=== PATIENT | female | born 1950 | race Caucasian/White ===

== ENCOUNTER → 2020-08-30 | Outpatient (CLI) | payer MEDICARE, OTHER | END | disposition home or self-care (01) | LOC: PLD 12:08 → LAB SHORT 12:08 | DX: L82.1 Other seborrheic keratosis (principal) | CPT/HCPCS: 88305 ==

== ENCOUNTER → 2024-06-09 | Outpatient (CLI) | payer MEDICARE, OTHER ==
[2024-06-09 17:39] LABS: BASOPHILS ABSOLUTE AUTO 0.11 K/mm3 (0.00-0.23); BASOPHILS PERCENT AUTO 1 % (0-2); EOSINOPHILS PERCENT AUTO 2 % (0-6); Hematocrit 43.5 % (33.0-51.0); Hemoglobin 14.6 g/dL (11.5-16.0); IMMATURE GRAN ABSOLUTE AUTO 0.19 K/mm3 (0.00-0.10); IMMATURE GRAN PERCENT AUTO 2 % (0-1); LYMPHOCYTES ABSOLUTE AUTO 1.59 K/mm3 (0.84-5.20); LYMPHOCYTES PERCENT AUTO 19 % (21-46); MONOCYTES ABSOLUTE AUTO 0.74 K/mm3 (0.16-1.47); MONOCYTES PERCENT AUTO 9 % (4-13); Mean Corpuscular HGB 30.2 pg (26.0-34.0); Mean Corpuscular HGB Conc 33.6 g/dL (31.5-36.5); Mean Corpuscular Volume 90 fL (80-100); NEUTROPHILS ABSOLUTE AUTO 5.42 K/mm3 (1.96-9.15); NEUTROPHILS PERCENT AUTO 66 % (41-73); Platelet Count 273 K/mm3 (150-400); RDW Coefficient Variation 13.9 % (11.7-14.2); Red Blood Cell Count 4.83 M/mm3 (3.80-5.20); White Blood Cell Count 8.25 K/mm3 (4.00-11.30)
[2024-06-09 17:46] LABS: Bun/Creatinine Ratio 8.5 (12.0-20.0); Calcium, Blood 8.9 mg/dL (8.5-10.1); Creatinine, Blood 0.82 mg/dL (0.40-1.00); Potassium, Blood 4.3 mmol/L (3.5-5.5)
== END | disposition home or self-care (01) ==
LOC: LAB SHORT 17:35 → LAB 17:35
PROVIDERS: Physician Assistant Surgical
DX: R53.83 Other fatigue (principal)
CPT/HCPCS: 80048; 85025

== ENCOUNTER 2024-07-07 10:53 | Inpatient (IN) | payer MEDICARE, OTHER ==
[~2024-07-07] VITALS: Ht 170.2 cm; Wt 53.2 kg
[2024-07-07] MEDS ORDERED: MethylPREDNISolone Sod Succ 125 MG Vial IV ONE (11:40)
[2024-07-07 11:43] LABS: BASOPHILS ABSOLUTE AUTO 0.08 K/mm3 (0.00-0.23); BASOPHILS PERCENT AUTO 1 % (0-2); EOSINOPHILS ABSOLUTE AUTO 0.05 K/mm3 (0.00-0.68); EOSINOPHILS PERCENT AUTO 0 % (0-6); Hematocrit 42.9 % (33.0-51.0); Hemoglobin 14.4 g/dL (11.5-16.0); IMMATURE GRAN ABSOLUTE AUTO 0.26 K/mm3 (0.00-0.10); IMMATURE GRAN PERCENT AUTO 2 % (0-1); LYMPHOCYTES ABSOLUTE AUTO 0.81 K/mm3 (0.84-5.20); LYMPHOCYTES PERCENT AUTO 6 % (21-46); MONOCYTES ABSOLUTE AUTO 1.03 K/mm3 (0.16-1.47); MONOCYTES PERCENT AUTO 8 % (4-13); Mean Corpuscular HGB 29.9 pg (26.0-34.0); Mean Corpuscular HGB Conc 33.6 g/dL (31.5-36.5); Mean Corpuscular Volume 89 fL (80-100); Mean Platelet Volume 10.4 fL (9.1-12.4); NEUTROPHILS ABSOLUTE AUTO 11.36 K/mm3 (1.96-9.15); NEUTROPHILS PERCENT AUTO 84 % (41-73); Platelet Count 159 K/mm3 (150-400); RDW Coefficient Variation 13.9 % (11.7-14.2); RDW Standard Deviation 45.2 fL (35.1-46.3); Red Blood Cell Count 4.82 M/mm3 (3.80-5.20); White Blood Cell Count 13.59 K/mm3 (4.00-11.30)
[2024-07-07 11:47] LABS: Albumin, Blood 3.2 g/dL (3.4-5.0); Albumin/Globulin Ratio 0.7 (0.8-1.8); Bilirubin, Total 1.2 mg/dL (0.1-1.0); Bun/Creatinine Ratio 47.4 (12.0-20.0); Calcium, Blood 12.1 mg/dL (8.5-10.1); Creatinine, Blood 1.35 mg/dL (0.40-1.00); Globulin, Blood 4.3 g/dL (2.2-4.0); Potassium, Blood 3.8 mmol/L (3.5-5.5); Total Protein, Blood 7.5 g/dL (6.4-8.2)
[2024-07-07] MEDS ORDERED: NS 1,000 ML IV SCH (12:30)
[2024-07-07] MEDS ORDERED: Aspirin 325 MG Tab PO ONE (12:45)
[2024-07-07] MEDS ORDERED: Acetaminophen 325 MG TABLET PO PRN ×2 (14:20→16:05)
[2024-07-07] MEDS ORDERED: FLU VACC TS2024-25(6MOS UP)/PF 45 MCG/0.5 ML SYRINGE IM SCH (14:20)
[2024-07-07] MEDS ORDERED: Ketorolac Tromethamine 15mg Vial IV PRN (14:25)
[2024-07-07] MEDS ORDERED: METHADONE HCL1010 PO (14:53)
[2024-07-07] MEDS ORDERED: LISI20 PO (14:54)
[2024-07-07] MEDS ORDERED: Ipratropium/Albuterol SulF 2.5-0.5MG/3 ML Amp INH ONE (16:00)
[2024-07-07] MEDS ORDERED: OxyCODONE HCL 5 MG TAB PO PRN (16:05)
[2024-07-07] MEDS ORDERED: Polyethylene Glycol 3350 17 gm PO PRN (16:05)
[2024-07-07] MEDS ORDERED: HYDROmorphone HCl/Pf 1MG SYR IV PRN (16:10)
[2024-07-07] MEDS ORDERED: Enoxaparin 60 MG/0.6 ML SYR SC SCH (17:00)
[2024-07-07 17:23] LABS: Anti-Xa UFH, PHA Monitoring <0.10 IU/mL
[2024-07-07 17:27] LABS: International Normalized Ratio 1.17; Prothrombin Time Results 12.4 Sec (9.7-11.5)
[2024-07-07] MEDS ORDERED: Lactated Ringer's 1,000 ML IV SCH (17:40)
--- NOTE | 2024-07-07 18:35 | NUR ---
PT ARRIVAL/SHIFT SUMMARY... PT ARRIVED TO THE UNIT AND WAS ABLE TO SELF TRANSFER TO THE BED. PT'S VS STABLE SHE IS ON RA WITH O2 SATS>95%. L/S DIM T/O. SHE IS IN SR IN THE 70'S. BP STABLE. NO SWELLING OR EDEMA NOTED. PT IS TEARFUL ABOUT NEW CA DIAGNOSIS, FAMILY AT THE BEDSIDE. WILL CONTINUE TO MONITOR UNTIL REPORT IS GIVEN TO ONCOMING RN.
[2024-07-07 20:21] VITALS: BP 123/77
[2024-07-07] MEDS ORDERED: Sennosides 8.6 MG Tab PO SCH (21:00)
[2024-07-08 00:15] VITALS: BP 128/63
[2024-07-08 04:38] LABS: BASOPHILS ABSOLUTE AUTO 0.02 K/mm3 (0.00-0.23); BASOPHILS PERCENT AUTO 0 % (0-2); EOSINOPHILS PERCENT AUTO 0 % (0-6); Hematocrit 33.9 % (33.0-51.0); Hemoglobin 11.4 g/dL (11.5-16.0); IMMATURE GRAN ABSOLUTE AUTO 0.17 K/mm3 (0.00-0.10); IMMATURE GRAN PERCENT AUTO 2 % (0-1); LYMPHOCYTES ABSOLUTE AUTO 0.69 K/mm3 (0.84-5.20); LYMPHOCYTES PERCENT AUTO 6 % (21-46); MONOCYTES ABSOLUTE AUTO 0.67 K/mm3 (0.16-1.47); MONOCYTES PERCENT AUTO 6 % (4-13); Mean Corpuscular HGB 29.7 pg (26.0-34.0); Mean Corpuscular HGB Conc 33.6 g/dL (31.5-36.5); Mean Corpuscular Volume 88 fL (80-100); Mean Platelet Volume 10.7 fL (9.1-12.4); NEUTROPHILS ABSOLUTE AUTO 9.83 K/mm3 (1.96-9.15); NEUTROPHILS PERCENT AUTO 86 % (41-73); Platelet Count 167 K/mm3 (150-400); RDW Coefficient Variation 13.7 % (11.7-14.2); RDW Standard Deviation 44.5 fL (35.1-46.3); Red Blood Cell Count 3.84 M/mm3 (3.80-5.20); White Blood Cell Count 11.38 K/mm3 (4.00-11.30)
[2024-07-08 05:00] VITALS: BP 138/92
[2024-07-08 05:13] LABS: Albumin, Blood 2.6 g/dL (3.4-5.0); Albumin/Globulin Ratio 0.8 (0.8-1.8); Bilirubin, Total 0.7 mg/dL (0.1-1.0); Bun/Creatinine Ratio 44.3 (12.0-20.0); Calcium, Blood 10.6 mg/dL (8.5-10.1); Creatinine, Blood 1.06 mg/dL (0.40-1.00); Globulin, Blood 3.2 g/dL (2.2-4.0); Potassium, Blood 4.2 mmol/L (3.5-5.5); Total Protein, Blood 5.8 g/dL (6.4-8.2)
--- NOTE | 2024-07-08 06:41 | NUR ---
SHIFT SUMMARY PATIENT ALERT AND ORIENTED X4. MEDICATED PER EMAR FOR PAIN. DENIED SHORTNESS OF BREATH, ON ROOM AIR WITH SPO2 >90%. VITAL SIGNS STABLE, SINUS RHYTHM ON TELE. NO ACUTE ISSUES NOTED OVERNIGHT WILL CONTINUE TO MONITOR. CALL LIGHT WITHIN REACH.
[2024-07-08 07:25] VITALS: BP 149/96
[2024-07-08] MEDS ORDERED: Enoxaparin 40 MG/0.4 ML SYR SC SCH (09:00)
[2024-07-08 11:50] VITALS: BP 156/89
--- NOTE | 2024-07-08 14:11 | NUR ---
"Spiritual Care Visit | Nurse Request Pt. is awake in bed and welcomes my visit. Pt. is pleasant. Facilitate a life review and we considered matters of eloy and belief. Pt. displays evidence of a clear mind and keen awareness. Pt. welcomed Prayer. Prayed with the Pt. Pt. verbalized gratitude for the spiritual care visit and welcomed this sales force administrator to return."
--- NOTE | 2024-07-08 14:53 | NUR ---
Met with pt at bedside this afternoon. She was tearful, but very direct. She told me she had been waiting to talk to someone from Hospice. I gently explained I am from palliative care, and we discussed the differences. She immediately answered she wants to pursue comfort care, and if possible, return home with hospice. She states she lives at home alone, but may be able to get some help from her daughter and her friend Izabel at home. Hospitalist placing comfort care orders now.
[2024-07-08] MEDS ORDERED: Morphine Sulfate 20 MG/1ML 1 ML Oral Syringe PO PRN (15:50)
[2024-07-08] MEDS ORDERED: LORazepam 1 MG Tab PO PRN (15:55)
--- NOTE | 2024-07-08 18:37 | NUR ---
TRANSFER NOTE PLEASANT PT, A&OX4. VSS. C/O OF 810 BACK AND LUNG PAIN. MEDICATING PER EMAR. MD DODSON IN ROOM THIS AM, ADDED LONG ACTING PO PAIN MED, SEE EMAR. CHAGED PT TO MEDICAL NO TELE STATUS. PT UP TO BSC TO VOID. PAINFUL TO REPOSITION. REPORT CALLED TO MEDICAL FLOOR RN, PT TRANSFERRED TO ROOM 359.
[2024-07-08] MEDS ORDERED: Apixaban 5 MG Tab PO SCH (21:00)
[2024-07-08] MEDS ORDERED: Morphine Sulfate 15 MG TABCR PO SCH (21:00)
--- NOTE | 2024-07-09 04:08 | NUR ---
SHIFT SUMMARY PATIENT ON COMFORT CARE. AXO 2-3 WITH CONFUSION. ONE ASSIST TO BSC. IMPULSIVE AT TIMES SETTING OFF BED ALARM NOT USING HER CALL LIGHT. DENIES CHEST PAIN, SOB, AND N/V. SCHEDULE MS CONTIN. REPORTED BACK PAIN WITH MOVEMENT. PIV INTACT. IV DILAUDID 1 MG GIVE PER EMAR. CALL LIGHT IN REACH. BED IN LOWEST POSITION AND ALARM ACTIVATED. WILL CONTINUE TO MONITOR UNTIL DAY SHIFT NURSE ASSUMES CARE.
--- NOTE | 2024-07-09 18:28 | NUR ---
NO ACUTE CHANGES, VERY IMPULSIVE TO BATHROOM, BED/CHAIR ALARM ON, ALERT AND ORIENTED X2-3, EASILY CONFUSED, MEDICATED FOR PAIN AND ANXIETY, DENIES CHEST PAIN, OR PRESSURE, DENIES N/V, FAMILY MEET WITH DR DODSON TODAY, WILL RELAY TO PM RN, CALL LIGHT WITH IN REACH
--- NOTE | 2024-07-09 18:31 | NUR ---
REPOSITIONING- PATIENT INDEPEDANT TO CHANGE POSITIONS IN BED, NO ASSISTANCE NEEDED
[2024-07-09 19:30] VITALS: BP 146/84
[2024-07-09] MEDS ORDERED: Morphine Sulfate 30 MG TabCR PO SCH (21:00)
--- NOTE | 2024-07-10 07:49 | NUR ---
SHIFT SUMMARY PT ON COMFORT CARE. SHE SLEPT HARD THROUGH NIGHT. THIS RN WOKE HER AFTER NOTCING SHE HAD SLUMPED IN HER BED. SHE HAD WOKEN WET. BEDDING AND ATTENDS CHANGED, PT MEDICATED FOR PAIN, THEN SHE WENT BACK TO BED AND SLEPT PEACEFULLY. NO ACUTE CHANGES NOTED.
--- NOTE | 2024-07-10 18:12 | NUR ---
NO ACUTE CHANGES, LESS GRIMACING PRESENTLY, USED ROXINAL ALL DAY, FAMILY HELPFUL AT BEDSIDE, BED ALARM ON WHEN FAMILY LEAVES
--- NOTE | 2024-07-11 07:41 | NUR ---
SHIFT SUMMARY PT DAUGHTER IN ROOM AT BEGINNING OF SHIFT. AFTER DAUGHTER LEFT, PT STATED SHE WAS IN PAIN. 01/05. MEDICATED FOR PAIN, THEN PT FELL ASLEEP. PT AWOKE SHORTLY AFTER, STATING SHE FELT THE NEED FOR HER ANXIETY MEDICATION TO HELP HER SLEEP. AFTER BEING MEDICATED, SHE SLEPT THROUGH TO THE END OF SHIFT. RELAYED TO DAYSHIFT NURSE.
--- NOTE | 2024-07-11 17:50 | NUR ---
SHIFT SUMMARY PT A&OX2-3 AND PAIN MANAGED PER EMAR. FAMILY AT BEDSIDE T/O THE SHIFT THAT ASSISTED W/ HER CARE. NO OTHER ACUTE CHANGES. CALL LIGHT WITHIN REACH AND BED ALARM ON FOR SAFETY.
--- NOTE | 2024-07-12 06:21 | NUR ---
SHIFT SUMMARY PT IS ALERT AND ORIENTED TIMES 4. PT WAS ASSESSED THROUGH OUT THE NIGHT FOR PAIN. PT APPEARED TO SLEEP THROUGH THE NIGHT WITHOUT ISSUE . BED IN LOWEST POSITION, AND CALL LIGHT WITHIN REACH.
--- NOTE | 2024-07-12 11:16 | NUR ---
Spiritual Care Visit. Pt. is awake in bed and is slightly started when I enter the room, but then welcomes my visit. Pt. is pleasant. Rapport is re-established. Pt. verbalized that she understands that she is on Comfort Care, but is not certain as to what means for her. Listen with empathy and a calming presence. Pastoral care and supprot is given. Prayed with Pt. Pt. verbalized gratitude for the spiritual care support.
--- NOTE | 2024-07-12 17:36 | NUR ---
SHIFT SUMMARY PUREWICK PLACED FOR COMFORT AND PAIN MANAGED PER EMAR. FAMILY AT BEDSIDE T/O SHIFT. NO OTHER ACUTE CHANGES. CALL LIGHT WITHIN REACH AND BED ALARM ON FOR SAFETY.
--- NOTE | 2024-07-13 05:41 | NUR ---
SHIFT SUMMARY NOC PT A/O X 2-3. FORGETFUL AND REPEATS SELF AT TIMES. ON COMFORT CARE MEASURES. PT DAUGHTER GIVEN LTC APPLICATION FOR HOME CAREGIVERS FROM MANAGER INPATIENT. PT PAIN BEING MANAGED WITH SCHEDULED PAIN RX, PT HAS DECLINED PRN PAIN RX. PUREWICK IN PLACE FOR INCONTINENCE WITH SCANT OUTPUT DUE TO POOR PO INTAKE. PT ON O2 1L/NC FOR COMFORT. PT CURRENTLY RESTING WITH BED IN LOWEST POSITION, AND CALL LIGHT WITHIN REACH.
--- NOTE | 2024-07-13 18:00 | NUR ---
SHIFT SUMMARY PAIN MANAGED PER EMAR. FAMILY AT BEDSIDE T/O SHIFT. NO ACUTE CHANGES. CALL LIGHT WITHIN REACH AND BED ALARM ON FOR SAFETY.
--- NOTE | 2024-07-14 16:02 | NUR ---
PT ON COMFORT CARE, MED PER EMAR FOR COMFORT, SOME FRIENDS AND FAMILY HAVE BEEN IN TO VISIT BRIEFLY, PT APPEARS COMFORTABLE
--- NOTE | 2024-07-14 16:07 | NUR ---
REPORT GIVEN TO FRANCOIS YANG
--- NOTE | 2024-07-14 20:05 | NUR ---
1630 TOOK OVER CARE OF THIS PT AFTER REPORT. PT RESPONDS TO VERBAL STIM. PAIN SEEMS CONTROLLED WITH ROXONOL. RESP EVEN UNLABORED RR 14. NO DYSPNES REPOSITIONED ROUTINELY, CHANGED PUREWIC AT 1800 TURN. FAMILY IN TO VISIT. REPORTED TO MILTON YANG.
[2024-07-15] MEDS ORDERED: FentaNYL Citrate 50 MCG/ML 2 ML Injection IV PRN (02:25)
--- NOTE | 2024-07-15 09:00 | NUR ---
pt is laying in bed with large quilt on her, she feels warm, rapid breathing and heart rate, medicated with roxinol, lungs are wet, very wet cough, she will open her eyes when spoke to and acknowleged she needed pain meds. will follow plan of care. call light in reach. soft music playing.
[2024-07-15] MEDS ORDERED: Scopolamine Hydrobromide Patch TOP PRN (11:15)
[2024-07-15] MEDS ORDERED: LORazepam 2 MG/ML 1ML Injection IV PRN (11:15)
[2024-07-15] MEDS ORDERED: Atropine Sulfate 1% Opth Soln 2ML BTL SL PRN (11:15)
--- NOTE | 2024-07-15 19:33 | NUR ---
LORRAINE IS A COMFORT CARE PATIENT. MANY VISITORS CAME TO HER BEDSIDE TODAY, INCLUDING HER DAUGHTERS, NIECES, AND FRIENDS. LORRAINE OPENS HER EYES ONLY TO PAIN STIMULUS, SHE DIDNOT OPEN HER EYES OR GIVE SIGNS TO ACKNOWLEDGE VERBAL STIMULI. SHE HAS NOT SHOWN ANY SIGNS OF PAIN, EXCEPT MOANING WITH REPOSITIONING. HER LUNGS SOUNDS ARE VERY WET AND MOIST. MEDICATED PER EMAR WITH ATROPINE, SCOPALAMINE AND ROXANOL. TOWARDS THE END OF THE SHIFT, HER BREATHING WAS LESS "GURGGLY" WHEN HER VISITORS TOOK A BREAK AND LEFT THE ROOM. REPOSITIONED EVERY TWO HOURS, PERFORMED ORAL CARE WITH TOOTHETTES AND MOISTENING LIPS/MOUTH. PUREWICK IN PLACE DRAINING DARK YELLOW URINE, ABOUT 100 MLS THIS SHIFT.
--- NOTE | 2024-07-16 04:00 | NUR ---
SHIFT SUMMARY: PT IS ON COMFORT CARE MEASURES AND HAS BEEN COMFORTABLE THROUGH OUT THE SHIFT. PT HAS BEEN GIVEN PAIN MEDICATION (see emar) AND STAFF HAS DONE Q2 REPOSITIONING FOR COMFORT. PT WILL SOMETIMES FURROW BROWS WHEN SHE SEEMS TO BE IN PAIN SO WE HAVE MEDICATED NEEDED FOR COMFORT. THE PT'S FRIEND MOHAMUD WAS AT BEDSIDE FOR FIRST PORTION OF SHIFT AND HAS NOW WENT HOME FOR SOME REST AND ASKED US TO CALL HER IF THE PT PASSES. PT HAS A PURE WICK AND NOT MUCH URINE OUTPUT. PT IS WARM TO THE TOUCH AND DOES NOT RESPOND WHEN TALKED TO OR OPEN EYES.
--- NOTE | 2024-07-16 07:39 | NUR ---
NURSE NOTE THIS RN REVIEWED AND AGREES WITH ORIENTEE COMFORT ASSESSMENTS AND SHIFT SUMMARY. THIS RN SPOKE TO BUS DRIVER FROM [facility] ([facility]); THE PT HAS PAID FOR [facility]. CLARITZA FROM [facility] ADVISED THIS RN THAT THEY CONTRACT WITH [facility]--CLARITZA ADVISED STAFF TO CONTACT [facility] IN THE EVENT THE PT PASSES.
--- NOTE | 2024-07-16 16:04 | NUR ---
VISITORS REPORTED THAT THEY BELIEVED FLORENCIA HAD PASSED. VARIFIED WITH QI SPECIALIST. TIME OF 8906
--- NOTE | 2024-07-16 16:12 | NUR ---
RN NOTE FRIEND MOHAMUD AT BEDSIDE WITH MS HAGAN FOR MOST OF THE DAY. MS HAAGN HAS BEEN MOSTLY UNRESPONSIVE TODAY, REACTING TO MOUTH CARE ONLY. TURNED AND REPOSITIONED Q2HRS, SKIN WARM. HER RESPIRATIONS WERE FAST THIS AM, SLOWING DOWN THROUGHOUT THE DAY AND SHE LOOKED VERY COMFORTABLE IN HER BREATHING IN THE LATER PART OF THE DAY, LUNGS A LOT LESS MOIST. FAMILY HAVE VISITED. MOHAMUD IS CALLING FAMILY. DR DAI CALLED AND NOTIFIED OF NO RESPIRATIONS.
== END 2024-07-16 15:59 | DRG 176 ==
LOC: ER 10:53 → PCU 10:54 → MEDS 16:03 → PCU 17:27 → MEDS 07-08 11:43
PROVIDERS: Emergency Medicine; ADMIT Hospitalist
DX: I26.92 Saddle embolus of pulmonary artery without acute cor pulmonale (principal); E87.1 Hypo-osmolality and hyponatremia; N17.9 Acute kidney failure, unspecified; Z66 Do not resuscitate; Z51.5 Encounter for palliative care; R64 Cachexia; C78.2 Secondary malignant neoplasm of pleura; C79.72 Secondary malignant neoplasm of left adrenal gland; C79.71 Secondary malignant neoplasm of right adrenal gland; C78.7 Secondary malignant neoplasm of liver and intrahepatic bile duct; C78.89 Secondary malignant neoplasm of other digestive organs; C79.51 Secondary malignant neoplasm of bone; Z68.1 Body mass index [BMI] 19.9 or less, adult; E46 Unspecified protein-calorie malnutrition; C34.92 Malignant neoplasm of unspecified part of left bronchus or lung; C34.91 Malignant neoplasm of unspecified part of right bronchus or lung; C79.89 Secondary malignant neoplasm of other specified sites; I26.99 Other pulmonary embolism without acute cor pulmonale; R54 Age-related physical debility; E86.0 Dehydration; F17.210 Nicotine dependence, cigarettes, uncomplicated; M41.9 Scoliosis, unspecified; J44.9 Chronic obstructive pulmonary disease, unspecified; G89.29 Other chronic pain; I10 Essential (primary) hypertension; Z79.899 Other long term (current) drug therapy; E86.1 Hypovolemia; E83.52 Hypercalcemia; M19.90 Unspecified osteoarthritis, unspecified site; Z74.01 Bed confinement status; M54.50 Low back pain, unspecified; R59.0 Localized enlarged lymph nodes
CPT/HCPCS: 36415; 71046; 71260; 80053; 83880; 84484; 85025; 85520; 85610; 85730; 93005; 93010; 93306; 94760; 94762; 96361; 96374-59; 99285-25; A9270; G0378; J1170; J1650; J2060; J2919; J7030; J7120; Q9967